=== PATIENT | female | born 1975 | race Two or more races ===

== ENCOUNTER 2018-09-12 15:30 | Emergency (ER) | payer MEDICAID ==
[~2018-09-12] VITALS: Ht 154.9 cm; Wt 113.4 kg
[2018-09-12] MEDS ORDERED: PANTOPRAZOLE 40 MG TAB PO ONE (17:00)
[2018-09-12 17:05] LABS: Basophils # (auto) 0 uL; Eosinophils # (auto) 0.2 uL; Hemoglobin 12.8 g/dL (12.2-16.2); Mean Corpuscular Volume 77.4 fL (80.0-100.0); White Blood Cell 6.4 10^3/uL (4.4-10.8)
[2018-09-12 17:06] LABS: Basophils % (auto) 0.4 % (0.0-2.0); Eosinophils % (auto) 2.4 % (0.0-7.0); Hematocrit 39.5 % (36.0-46.0); Lymphocytes % (auto) 30.9 % (10.0-50.0); Mean Corpuscular Hemoglobin 25.1 pg (28.0-32.0); Mean Corpuscular Hgb Conc. 32.5 g/dL (32.0-36.0); Monocytes # (auto) 0.7 uL; Monocytes % (auto) 11.2 % (0.0-12.0); Neutrophils # (auto) 3.5 uL; Neutrophils % (auto) 55.1 % (37.0-80.0); Nucleated Red Blood Cells % 0.1 %; Platelet Count (auto) 224 10^3/uL (140-450); Red Blood Cells 5.11 10^6/uL (4.0-5.20); Red Cell Distribution Width 13.9 % (11.8-14.3)
[2018-09-12 17:21] LABS: Urine Bacteria FEW /hpf (None Seen); Urine Blood Negative /uL (Negative); Urine Mucus FEW (None Seen); Urine Specific Gravity 1.029 (1.001-1.035); Urine WBC 3 /hpf (0 - 5)
[2018-09-12 17:35] LABS: Anion Gap 6 (5-15); Blood Urea Nitrogen 11 mg/dL (7-18); Calcium 8.1 mg/dL (8.5-10.1); Carbon Dioxide 25 mmol/L (21-32); Chloride 107 mmol/L (98-107); Glucose 92 mg/dL (74-106); Potassium 4.3 mmol/L (3.5-5.1); Sodium 138 mmol/L (136-145)
[2018-09-12 17:38] LABS: Alanine Aminotransferase 26 U/L (13-56); Aspartate Aminotransferase 24 U/L (15-37); BUN/Creatinine Ratio 15.3; GFR African American 115 mL/min; GFR Non-African American 95 mL/min
[2018-09-12 17:39] LABS: Alkaline Phosphatase 83 U/L (45-117); Bilirubin, Total 0.4 mg/dL (0.2-1.0); Total Protein 7.2 g/dL (6.4-8.2)
[2018-09-12 20:00] VITALS: BP 120/76
== END 2018-09-12 20:39 | disposition home or self-care (01) ==
LOC: ER 15:34
DX: K29.70 Gastritis, unspecified, without bleeding (principal); R51 Headache
CPT/HCPCS: 36415; 80053; 81001; 85025

== ENCOUNTER 2019-07-24 16:16 | Emergency (ER) | payer SELFPAY ==
[~2019-07-24] VITALS: Ht 162.6 cm; Wt 99.8 kg
[2019-07-24 17:04] LABS: Urine Bacteria FEW /hpf (None Seen); Urine Blood 3+ /uL (Negative); Urine Mucus MANY (None Seen); Urine Specific Gravity 1.031 (1.001-1.035); Urine WBC 22 /hpf (0 - 5)
[2019-07-24 18:03] LABS: Hemoglobin 12.1 g/dL (12.2-16.2); Mean Corpuscular Volume 73.4 fL (80.0-100.0); Red Blood Cells 5.04 10^6/uL (4.0-5.20); White Blood Cell 3.5 10^3/uL (4.4-10.8)
[2019-07-24 18:05] LABS: Mean Corpuscular Hgb Conc. 32.8 g/dL (32.0-36.0); Platelet Count (auto) 192 10^3/uL (140-450); Red Cell Distribution Width 15.3 % (11.8-14.3)
[2019-07-24 18:08] LABS: Basophils % (manual) 0 (0.0-2.0); Blast Cells 0; Eosinophils % (manual) 0 (0-7); Metamyelocytes % 0; Myelocytes % 0; Promyelocytes % 0; Reactive Lymphocytes 0
[2019-07-24 18:18] LABS: INR 1.03 (0.9-1.15); Partial Thromboplastin Time 29.7 sec (23.64-32.05)
[2019-07-24 18:19] LABS: Albumin 3.3 g/dL (3.4-5.0); Anion Gap 8 (5-15); Blood Urea Nitrogen 12 mg/dL (7-18); Calcium 8.7 mg/dL (8.5-10.1); Carbon Dioxide 21 mmol/L (21-32); Chloride 109 mmol/L (98-107); Glucose 104 mg/dL (74-106); Magnesium 2.2 mg/dL (1.6-2.6); Potassium 3.4 mmol/L (3.5-5.1); Sodium 138 mmol/L (136-145)
[2019-07-24 18:21] LABS: Alanine Aminotransferase 19 U/L (13-56); Aspartate Aminotransferase 15 U/L (15-37); BUN/Creatinine Ratio 17.9; GFR African American 124 mL/min; GFR Non-African American 103 mL/min
[2019-07-24 18:26] LABS: Alkaline Phosphatase 70 U/L (45-117); Bilirubin, Total 0.5 mg/dL (0.2-1.0); Total Protein 7.7 g/dL (6.4-8.2)
[2019-07-24 18:28] VITALS: BP 163/89
[2019-07-24 19:05] LABS: Lymphocytes % (manual) 40 (10.0-50.0); Monocytes % (manual) 20 (0-12)
[2019-07-24] MEDS: DexAMETHasone SOD PHOS 10MG/1ML VIAL INJ IM ONE (20:46)
[2019-07-24] MEDS: cefTRIAXone SOD 1,000 MG VL IM ONE (20:47)
== END 2019-07-24 20:55 | disposition home or self-care (01) ==
LOC: ER 16:16
DX: N39.0 Urinary tract infection, site not specified (principal); J32.8 Other chronic sinusitis
CPT/HCPCS: 36415; 71045; 80053; 81001; 83735; 83880; 84484; 85007; 85027; 85610; 85730; 93005; 96372; 99284; J0696; J1100

== ENCOUNTER 2019-09-06 22:30 | Emergency (ER) | payer MEDICAID ==
[~2019-09-06] VITALS: Ht 160 cm; Wt 108.9 kg
[2019-09-06 23:50] VITALS: BP 145/93
[2019-09-07 00:22] LABS: Alcohol, Urine < 3.0 mg/dL (0-5); Amphetamine Screen, Urine NEGATIVE (NEGATIVE); Barbiturate Scree,Urine NEGATIVE (NEGATIVE); Benzodiazephine Screen, Urine NEGATIVE (NEGATIVE); Cannabinoid Screen, Urine NEGATIVE (NEGATIVE); Cocaine Screen, Urine NEGATIVE (NEGATIVE); Opiate Scree,Urine NEGATIVE (NEGATIVE); Phencyclidine Screen, Urine NEGATIVE (NEGATIVE)
[2019-09-07] MEDS ORDERED: HYDROcodone-ACET 5/325MG TAB PO ONE (00:30)
[2019-09-07] MEDS ORDERED: ONDANSETRON ODT 4 MG TAB PO ONE (00:30)
== END 2019-09-07 00:42 | disposition home or self-care (01) ==
LOC: ER 22:32
DX: M54.42 Lumbago with sciatica, left side (principal); M54.41 Lumbago with sciatica, right side; G89.29 Other chronic pain
CPT/HCPCS: 80307; 81002; 81025; 99283; Q0162

== ENCOUNTER 2019-09-09 20:22 | Emergency (ER) | payer MEDICAID ==
[~2019-09-09] VITALS: Ht 152.4 cm; Wt 90.7 kg
[2019-09-09 20:39] VITALS: BP 118/58
[2019-09-09 22:33] LABS: Urine Bacteria FEW /hpf (None Seen); Urine Blood Negative /uL (Negative); Urine Mucus FEW (None Seen); Urine Specific Gravity 1.018 (1.001-1.035); Urine WBC 5 /hpf (0 - 5)
[2019-09-09] MEDS ORDERED: KETOROLAC TROMETH 60MG/2ML VIAL IM ONE (23:15)
[2019-09-09] MEDS ORDERED: methylPREDNISolone SOD SUCC 125 MG/2 ML VL IM ONE (23:15)
== END 2019-09-10 00:03 | disposition home or self-care (01) ==
LOC: ER 20:22
DX: S33.5XXA Sprain of ligaments of lumbar spine, initial encounter (principal); M62.830 Muscle spasm of back; M43.16 Spondylolisthesis, lumbar region; N39.0 Urinary tract infection, site not specified; X58.XXXA Exposure to other specified factors, initial encounter; Y93.89 Activity, other specified; Y92.89 Other specified places as the place of occurrence of the external cause; Y99.8 Other external cause status
CPT/HCPCS: 72100; 81001; 96372; 99284; J1885; J2930

== ENCOUNTER 2020-06-27 15:16 | Emergency (ER) | payer MEDICAID ==
[~2020-06-27] VITALS: Ht 160 cm; Wt 97.5 kg
[2020-06-27 15:24] VITALS: BP 156/82
[2020-06-27] MEDS ORDERED: KETOROLAC TROMETH 60MG/2ML VIAL IM ONE (15:45)
[2020-06-27] MEDS ORDERED: METHOCARBAMOL 500 MG TAB PO ONE (16:00)
== END 2020-06-27 17:47 | disposition home or self-care (01) ==
LOC: EDBD 15:16 → EDUNIT# 15:16 → ER 15:16
DX: S16.1XXA Strain of muscle, fascia and tendon at neck level, initial encounter (principal); M50.30 Other cervical disc degeneration, unspecified cervical region; M54.12 Radiculopathy, cervical region; V43.52XA Car driver injured in collision with other type car in traffic accident, initial encounter; Y93.89 Activity, other specified; Y92.488 Other paved roadways as the place of occurrence of the external cause; Y99.8 Other external cause status
CPT/HCPCS: 72040; 96372; 99283; J1885